=== PATIENT | male | born 1940 | race Two or more races ===

== ENCOUNTER 2018-03-15 10:50 | Emergency (ER) | payer OTHER ==
[~2018-03-15] VITALS: Ht 165.1 cm; Wt 63.5 kg
[~2018-03-15 10:50] MED LIST: AMOX1TAB61 PO; HYDR-971 PO
--- NOTE | 2018-03-15 11:25 | EKG ---
[facility] [address] [place] [address] Test Date: 2018-03-15 Test Time: 11:15:34 Pat Name: ALEX SOTO Department: Room: Gender: M Lead Dental Assistant: YIMI : 1940 Requested By: MACY RODRÍGUEZ Order Number: [id number] Reading MD: Measurements Intervals [place] Rate: 62 P: 49 VT: 152 QRS: 7 QRSD: 74 T: 30 QT: 366 QTc: 373 Interpretive Statements SINUS RHYTHM R-S TRANSITION ZONE IN V LEADS DISPLACED TO THE RIGHT OTHERWISE NORMAL ECG RI6.01 No previous ECG available for comparison
--- NOTE | 2018-03-15 11:32 | PHYS DOC ---
Past Medical History Past Medical History: Asthma, GERD, Hypertension Past Surgical History: Appendectomy Alcohol Use: None Drug Use: None Adult General Chief Complaint Chief Complaint: DIZZY/LIGHT HEADED HPI HPI Pt is a poor historian. They have poor understanding of their past medical history and current medical conditions. They do not provide a clear timeline of events/history. History also limited by Kittitian as a secondary language. Patient speaks Portuguese primarily. Language line offered but patient refused an assist on using family member at bedside as power plant electrician. Patient is a 77 year old male who presents to the ER for evaluation of multiple complaints #1. Patient reports chronic dizziness that has been present daily for the last 2 -3 years. It is unclear to me what outpatient evaluation he has had but it sounds like he's had multiple CTs of his head and hasn't been seen by an ENT doctor is unclear if he has been followed with a neurologist. Patient reports chronic gait instability secondary to his dizziness and reports that he uses a cane to ambulate. Patient reports increased dizziness described as vertigo for the past 2-3 days. Patient reports increased gait instability secondary to worsening dizziness. Patient does not take any medications at home for this. Patient follows with a PCP at and states that he is discussed suspiciousness with his primary care physician. #2. Patient reports history of asthma. Patient reports compliance with home inhalers. Patient reports increased shortness of breath over the last 1 day that feels like previous asthma exacerbations.. Patient has chronic cough which she feels is unchanged. Patient denies any fevers. It is unclear when he last had a course of prednisone. Review of Systems Review of Systems Constitutional: Denies fever or chills [] Eyes: Denies change in visual acuity, redness, or eye pain [] HENT: Nasal congestion present Respiratory: Cough and shortness of breath present Cardiovascular: No chest pain, no lower extremity edema, no orthopnea GI: Denies abdominal pain, nausea, vomiting, bloody stools or diarrhea [] : Denies dysuria or hematuria [] Musculoskeletal: Denies back pain or joint pain [] Integument: Denies rash or skin lesions [] Neurologic: Denies headache, focal weakness or sensory changes []dizziness present Endocrine: Denies polyuria or polydipsia [] All other systems were reviewed and found to be within normal limits, except as documented in this note. Current Medications Current Medications Current Medications Medications (Trade) Dose Ordered Sig/Nany Start Time Stop Time Status Last Admin Dose Admin Albuterol/ Ipratropium (Duoneb) 3 ml 1X ONCE 03/15/18 12:00 03/15/18 12:01 DC 03/15/18 11:54 3 ML Diazepam (Valium) 5 mg 1X ONCE 03/15/18 11:45 03/15/18 11:46 DC 03/15/18 11:34 5 MG Prednisone (Prednisone) 50 mg 1X ONCE 03/15/18 12:00 03/15/18 12:01 DC 03/15/18 12:29 50 MG Allergies Allergies Allergies Coded Allergies Type Severity Reaction Last Updated Verified No Known Drug Allergies 07/11/16 No Physical Exam Physical Exam Constitutional: frail appearing HENT: Normocephalic, atraumatic, Eyes: PERRLA, EOMI, Neck: no stridor. [] Cardiovascular:Heart rate regular rhythm, no murmur [] Lungs & Thorax: Lateral mild expiratory wheezing. Acute respiratory distress. Abdomen: Bowel sounds normal, soft, no tenderness, no masses, no pulsatile masses. [] Skin: Warm, dry, no erythema, no rash. [] Extremities:ROM intact, no edema. [] Neurologic: Alert and oriented X 3, no focal deficits noted. Equal strength in all 4 extremities. Normal sensation all 4 tremors. Cranial nerves II through XII intact bilaterally. Cerebellar function intact bilaterally [id number] and [id number]. Psychologic: Affect normal, judgement normal, mood normal. [] Current Patient Data Vital Signs Vital Signs Date Time Temp Pulse Resp B/P (MAP) Pulse Ox O2 Delivery O2 Flow Rate FiO2 03/15/18 12:45 82 92 03/15/18 11:50 Room Air 03/15/18 10:57 97.2 18 175/84 (114) 97.2 Lab Values Laboratory Tests Test 03/15/18 11:25 03/15/18 12:30 White Blood Count 5.6 x10^3/uL (4.0-11.0) Red Blood Count 4.43 x10^6/uL (4.30-5.70) Hemoglobin 13.9 g/dL (13.0-17.5) Hematocrit 40.5 % (39.0-53.0) Mean Corpuscular Volume 92 fL (79-100) Mean Corpuscular Hemoglobin 31 pg (25-35) Mean Corpuscular Hemoglobin Concent 34 g/dL (31-37) Red Cell Distribution Width 14.0 % (11.5-14.5) Platelet Count 176 x10^3/uL (140-400) Neutrophils (%) (Auto) 68 % (31-73) Lymphocytes (%) (Auto) 18 % (24-48) L Monocytes (%) (Auto) 6 % (0-9) Eosinophils (%) (Auto) 7 % (0-3) H Basophils (%) (Auto) 1 % (0-3) Neutrophils # (Auto) 3.8 x10^3uL (1.8-7.7) Lymphocytes # (Auto) 1.0 x10^3/uL (1.0-4.8) Monocytes # (Auto) 0.3 x10^3/uL (0.0-1.1) Eosinophils # (Auto) 0.4 x10^3/uL (0.0-0.7) Basophils # (Auto) 0.0 x10^3/uL (0.0-0.2) Prothrombin Time 12.6 SEC (11.7-14.0) Prothrombin Time INR 1.0 (0.8-1.1) Sodium Level 138 mmol/L (136-145) Potassium Level 3.6 mmol/L (3.5-5.1) Chloride Level 105 mmol/L (98-107) Carbon Dioxide Level 27 mmol/L (21-32) Anion Gap 6 (6-14) Blood Urea Nitrogen 10 mg/dL (8-26) Creatinine 1.1 mg/dL (0.7-1.3) Estimated GFR (Cockcroft-Gault) 65.3 Glucose Level 114 mg/dL (70-99) H Calcium Level 8.7 mg/dL (8.5-10.1) Troponin I Quantitative < 0.017 ng/mL (0.000-0.055) Urine Collection Type Unknown Urine Color Yellow Urine Clarity Clear Urine pH 6.0 Urine Specific Grandin 1.015 Urine Protein Negative mg/dL (NEG-TRACE) Urine Glucose (UA) Negative mg/dL (NEG) Urine Ketones (Stick) Negative mg/dL (NEG) Urine Blood Negative (NEG) Urine Nitrite Negative (NEG) Urine Bilirubin Negative (NEG) Urine Urobilinogen Dipstick 1.0 mg/dL (0.2 mg/dL) Urine Leukocyte Esterase Negative (NEG) Urine RBC 0 /HPF (0-2) Urine WBC Occ /HPF (0-4) Urine Squamous Epithelial Cells Occ /LPF Urine Bacteria 0 /HPF (0-FEW) Urine Mucus Mod /LPF Laboratory Tests 03/15/18 11:25 Laboratory Tests 03/15/18 11:25 EKG EKG []Normal sinus rhythm, heart rate 62, no significant ST segment changes. Radiology/Procedures Radiology/Procedures CXR IMPRESSION: 1. No radiographic evidence for acute cardiopulmonary process. Electronically signed by: Elvin Moreno MD (03/15/2018 11:38 AM) [facility][] CT Head IMPRESSION: 1. No evidence for acute intracranial process. 2. Changes of chronic small vessel disease. Course & Med Decision Making Course & Med Decision Making Pertinent Labs and Imaging studies reviewed. (See chart for details) []Reassuring ER evaluation. Reportedly is improved after medications in the ER. Required 2 breathing treatments. Given a course of prednisone. Discussed Rx. Advised close follow-up with PCP. Observed gait in the ER and appeared very stable with his cane. ER return precautions given. Patient verbalizes understanding. All questions answered. Dragon Disclaimer Kym Disclaimer This electronic medical record was generated, in whole or in part, using a voice recognition dictation system. Departure Departure Impression: Primary Impression: Dizziness Additional Impression: Asthma exacerbation Disposition: 01 HOME, SELF-CARE Condition: IMPROVED Referrals: NO PCP (PCP) Patient Instructions: Asthma, Adult Additional Instructions: Thank you for coming to [facility]. Please repeat the attached handouts. Please follow-up with your primary care physician. Return to the ER if your symptoms worsen or you have any other concerns. Please take the prednisone as prescribed. Take the meclizine as prescribed for further dizziness. Follow-up with your primary care physician in the next 2-7 days. Scripts Prednisone (PREDNISONE) 50 Mg Tablet 50 MG PO DAILY for 4 Days, #4 TAB Prov: MACY RODRÍGUEZ DO 03/15/18 Meclizine Hcl (MECLIZINE HCL) 25 Mg Tablet 25 MG PO PRN TID for dizziness MDD 2 tablets for 7 Days, #20 dizziness Prov: MACY RODRÍGUEZ DO 03/15/18 Problem Qualifiers MACY RODRÍGUEZ DO Mar 15, 2018 11:32
--- NOTE | 2018-03-15 11:42 | RAD ---
EXAM: PA and lateral views of the chest DATE: 03/15/2018 11:14 AM INDICATION: COUGH COMPARISON: No Prior FINDINGS: The heart is not enlarged. Atherosclerotic calcifications of aorta are seen. Mediastinal and hilar contours are normal. No focal parenchymal airspace opacity. No pleural effusion or pneumothorax. IMPRESSION: 1. No radiographic evidence for acute cardiopulmonary process. Electronically signed by: Elvin Moreno MD (03/15/2018 11:38 AM) [facility]
[2018-03-15 11:45] LABS: BASO % 1 % (0-3); EOS # 0.4 x10^3/uL (0.0-0.7); EOS % 7 % (0-3); HEMATOCRIT 40.5 % (39.0-53.0); HEMOGLOBIN 13.9 g/dL (13.0-17.5); LYMPH % 18 % (24-48); MEAN CORPUSCULAR HEMOGLOBIN 31 pg (25-35); MEAN CORPUSCULAR HGB CONC 34 g/dL (31-37); MEAN CORPUSCULAR VOLUME 92 fL (79-100); MONO # 0.3 x10^3/uL (0.0-1.1); MONO % 6 % (0-9); NEUT # 3.8 x10^3uL (1.8-7.7); NEUT % 68 % (31-73); PLATELET COUNT 176 x10^3/uL (140-400); RED BLOOD COUNT 4.43 x10^6/uL (4.30-5.70); WHITE BLOOD COUNT 5.6 x10^3/uL (4.0-11.0)
[2018-03-15] MEDS ORDERED: IPRATRPIUM/ALBUTEROL 0.5/2.5MG 3 ML NEBU. NEB ONE ×2 (11:45→12:00)
[2018-03-15] MEDS ORDERED: diazePAM 5 MG TABLET PO ONE (11:45)
[2018-03-15 12:00] LABS: CALCIUM 8.7 mg/dL (8.5-10.1); CREATININE 1.1 mg/dL (0.7-1.3); GFR 65.3; POTASSIUM 3.6 mmol/L (3.5-5.1)
[2018-03-15] MEDS ORDERED: predniSONE 10 MG TABLET PO ONE (12:00)
[2018-03-15 12:07] LABS: PROTHROMBIN TIME PATIENT 12.6 SEC (11.7-14.0)
--- NOTE | 2018-03-15 12:19 | RAD ---
CT head without IV contrast CLINICAL HISTORY: DIZZINESS, HEADACHES, NO PRIORS COMPARISON: None. TECHNIQUE: Routine CT of the head without contrast. Soft tissues and bone windows were reviewed. PQRS compliance statement - One or more of the following individualized dose reduction techniques were utilized for this study: 1. Automated exposure control 2. Adjustment of the mA and/or kV according to patient size 3. Use of iterative reconstruction technique FINDINGS: There is no evidence of hemorrhage, mass or extra-axial fluid collection. Gan-white differentiation is maintained with no evidence of edema. There are non-specific foci of hypodensity in the periventricular and subcortical white matter of the cerebral hemispheres. There is no mass effect or shift of the intracranial structures. The ventricles, basilar cisterns and cortical sulci are normal in size and configuration for the patients stated age. The cerebellum and brainstem are unremarkable. The calvarium demonstrates no evidence of fracture or focal lesion. There is normal aeration of the visualized paranasal sinuses and mastoid air cells. The visualized portions of the orbits are normal. IMPRESSION: 1. No evidence for acute intracranial process. 2. Changes of chronic small vessel disease. Electronically signed by: Elvin Moreno MD (03/15/2018 12:16 PM) [facility]
[2018-03-15 12:45] VITALS: BP 151/100
[2018-03-15 12:50] LABS: BILIRUBIN,URINE NEGATIVE (NEG); CLARITY,URINE CLEAR; COLOR,URINE YELLOW; NITRITE,URINE NEGATIVE (NEG); PROTEIN,URINE NEGATIVE (NEG-TRACE)
[2018-03-15 13:17] LABS: BACTERIA,URINE 0 /HPF (0-FEW); RBC,URINE 0 /HPF (0-2); SQUAMOUS EPITHELIAL CELL,UR OCC /LPF; WBC,URINE OCC /HPF (0-4)
[2018-03-15] MEDS ORDERED: PRED50TA PO (13:19)
[2018-03-15] MEDS ORDERED: MECL25TA3 PO (13:19)
== END 2018-03-15 13:29 | disposition home or self-care (01) ==
LOC: EDSEX 10:50 → ER 10:50 → MERGE 10:50 → ER 13:29
DX: J45.901 Unspecified asthma with (acute) exacerbation (principal); R42 Dizziness and giddiness; K21.9 Gastro-esophageal reflux disease without esophagitis; I10 Essential (primary) hypertension; Z90.89 Acquired absence of other organs
CPT/HCPCS: 36415; 70450; 71046; 80048; 81001; 84484; 85025; 85610; 93005; 94640; 99285; J7512; J7620

== ENCOUNTER 2019-07-27 11:13 | Emergency (ER) | payer OTHER ==
[~2019-07-27] VITALS: Ht 165.1 cm; Wt 63.5 kg
[~2019-07-27 11:13] MED LIST changes: +HYDR-3164 PO; -HYDR-971 PO; +MECL25TA3 PO; +PRED50TA PO
[2019-07-27 11:43] VITALS: BP 155/80
[2019-07-27] MEDS ORDERED: CHLO1TB. PO (12:07)
[2019-07-27] MEDS ORDERED: PRED50TA PO (12:07)
[2019-07-27] MEDS ORDERED: AMOX875T PO (12:07)
--- NOTE | 2019-07-27 12:07 | PHYS DOC ---
Past Medical History Past Medical History: Asthma, GERD, Hypertension Past Surgical History: Appendectomy Additional Past Surgical Histo: Unknown Alcohol Use: None Drug Use: None Adult General Chief Complaint Chief Complaint: EARACHE/EAR PAIN HPI HPI Patient is a 78 year old male with history of asthma, hypertension who presents to the ED today complaining of left ear pain rated as mild and intermittent as well as nasal congestion with sinus pressure for 5 days. Patient denies any fever. Patient is Tajik speaking and interpretation is provided by his granddaughter Review of Systems Review of Systems Constitutional: Denies fever or chills [] Eyes: Denies change in visual acuity, redness, or eye pain [] HENT: Reports left ear pain with left sinus pressure, denies sore throat [] Respiratory: Denies cough or shortness of breath [] Cardiovascular: No additional information not addressed in HPI [] GI: Denies abdominal pain, nausea, vomiting, bloody stools or diarrhea [] : Denies dysuria or hematuria [] Musculoskeletal: Denies back pain or joint pain [] Integument: Denies rash or skin lesions [] Neurologic: Denies headache, focal weakness or sensory changes [] All other systems were reviewed and found to be within normal limits, except as documented in this note. Allergies Allergies Allergies Coded Allergies Type Severity Reaction Last Updated Verified No Known Drug Allergies 07/11/16 No Physical Exam Physical Exam Constitutional: Well developed, well nourished, no acute distress, non-toxic appearance. [] HENT: Normocephalic, atraumatic, bilateral external ears normal, oropharynx moist, no oral exudates, left TM is mildly injected, moderate sinus pressure noted on the left maxillary sinus. Eyes: PERRLA, EOMI, conjunctiva normal, no discharge. [] Neck: Normal range of motion, no tenderness, supple, no stridor. [] Cardiovascular:Heart rate regular rhythm, no murmur [] Lungs & Thorax: Bilateral breath sounds clear to auscultation [] Abdomen: Bowel sounds normal, soft, no tenderness, no masses, no pulsatile masses. [] Skin: Warm, dry, no erythema, no rash. [] Back: No tenderness, no CVA tenderness. [] Extremities: No tenderness, no cyanosis, no clubbing, ROM intact, no edema. [] Neurologic: Alert and oriented X 3, normal motor function, normal sensory function, no focal deficits noted. [] Psychologic: Affect normal, judgement normal, mood normal. [] Current Patient Data Vital Signs Vital Signs Date Time Temp Pulse Resp B/P (MAP) Pulse Ox O2 Delivery O2 Flow Rate FiO2 07/27/19 11:43 97.8 84 18 155/80 (105) 97 Room Air 97.8 EKG EKG [] Radiology/Procedures Radiology/Procedures [] Course & Med Decision Making Course & Med Decision Making Pertinent Labs and Imaging studies reviewed. (See chart for details) This is a 78-year-old male patient presenting to the ED today with left ear pain and left sinus pressure. Symptoms for 5 days. He'll be treated for otitis media with amoxicillin. He does not meet criteria for treatment for sinusitis. Follow-up with primary care doctor in 1-2 weeks. Dragon Disclaimer Dragon Disclaimer This electronic medical record was generated, in whole or in part, using a voice recognition dictation system. Departure Departure Impression: Primary Impression: Otitis media, left Additional Impression: Sinus pressure Disposition: 01 HOME, SELF-CARE Condition: STABLE Referrals: DENNIS CROSS MD (PCP) follow up in 1-2 weeks Patient Instructions: Otitis Media, Adult, [id number] Additional Instructions: You were treated in the emergency room for ear infection. Take the prescribed medication as ordered ensure you complete your antibiotics. Follow-up with your doctor in the course of next week. Scripts Chlorphen/Dm/Acetaminophen/Gg (CORICIDIN HBP DAY-NIGHT PACK) 1 Each Tb.cp.seq 1 CAP PO BID, #14 CAP 0 Refills Prov: JUANA CAMARGO APRN 07/27/19 Prednisone (PREDNISONE) 50 Mg Tablet 1 TAB PO DAILY, #5 TAB Prov: JUANA CAMARGO APRN 07/27/19 Amoxicillin (AMOXICILLIN) 875 Mg Tablet 1 TAB PO BID, #20 TAB Prov: JUANA CAMARGO APRN 07/27/19 Problem Qualifiers Primary Impression: Otitis media, left Otitis media type: other nonsuppurative Chronicity: acute Recurrence: non-recurrent Qualified Codes: H65.192 - Other acute nonsuppurative otitis media, left ear JUANA CAMARGO APRN Jul 27, 2019 12:07
== END 2019-07-27 12:17 | disposition home or self-care (01) ==
LOC: ER 11:13
DX: H65.192 Other acute nonsuppurative otitis media, left ear (principal); J34.89 Other specified disorders of nose and nasal sinuses; J45.909 Unspecified asthma, uncomplicated; K21.9 Gastro-esophageal reflux disease without esophagitis; I10 Essential (primary) hypertension
CPT/HCPCS: 99283

== ENCOUNTER 2020-12-22 10:17 | Emergency (ER) | payer OTHER ==
[~2020-12-22] VITALS: Ht 157.5 cm; Wt 60.0 kg
[~2020-12-22 10:17] MED LIST changes: +AMOX875T PO; +CHLO1TB. PO; +MECL-75 PO; -MECL25TA3 PO
[2020-12-22 11:44] VITALS: BP 162/83
[2020-12-22] MEDS ORDERED: GABAPENTIN 300 MG CAPSULE. PO ONE (11:45)
[2020-12-22] MEDS ORDERED: predniSONE 10 MG TABLET PO ONE (11:45)
[2020-12-22] MEDS ORDERED: traMADol 50 MG TABLET PO ONE (11:45)
--- NOTE | 2020-12-22 11:52 | PHYS DOC ---
Past Medical History Past Medical History: Asthma, GERD, Hypertension Past Surgical History: Appendectomy Additional Past Surgical Histo: Unknown Smoking Status: Never Smoker Alcohol Use: None Drug Use: None General Adult EDM: Chief Complaint: SKIN RASH/ABSCESS HPI: HPI: Patient is a 80 year old male with a history of hypertension, acid reflux, asthma, who presents the ED today complaining of a painful rash on the right abdomen and back, for 10 days. Patient denies any fever. Patient is Telugu speaking and interpretation is provided by the son Review of Systems: Review of Systems: Constitutional: Denies fever or chills. [] Musculoskeletal: Denies back pain or joint pain. [] Integument: Reports painful rash to the right upper quadrant and right chest Neurologic: Denies headache, focal weakness or sensory changes. [] Psychiatric: Denies depression or anxiety. [] Heart Score: C/O Chest Pain: N/A Risk Factors: Risk Factors: DM, Current or recent (<one month) smoker, HTN, HLP, family history of CAD, obesity. Risk Scores: Score 0 - 3: 2.5% MACE over next 6 weeks - Discharge Home Score 4 - 6: 20.3% MACE over next 6 weeks - Admit for Clinical Observation Score 7 - 10: 72.7% MACE over next 6 weeks - Early Invasive Strategies Current Medications: Current Medications Medications (Trade) Dose Ordered Sig/Nany Start Time Stop Time Status Last Admin Dose Admin Gabapentin (Neurontin) 300 mg 1X ONCE 12/22/20 11:45 12/22/20 11:46 DC Prednisone (Prednisone) 50 mg 1X ONCE 12/22/20 11:45 12/22/20 11:46 DC Tramadol HCl (Ultram) 50 mg 1X ONCE 12/22/20 11:45 12/22/20 11:46 DC Allergies: Allergies: Allergies Coded Allergies Type Severity Reaction Last Updated Verified No Known Drug Allergies 07/11/16 No Physical Exam: PE: Constitutional: Well developed, well nourished, no acute distress, non-toxic appearance. [] Skin: Warm, dry, right upper quadrant, right flank with grouped red lesions consistent with shingles. No drainage. Back: No tenderness, no CVA tenderness. [] Extremities: No tenderness, no cyanosis, no clubbing, ROM intact, no edema. [] Neurologic: Alert and oriented X 3, normal motor function, normal sensory function, no focal deficits noted. [] Psychologic: Affect normal, judgement normal, mood normal. [] EKG: EKG: [] Radiology/Procedures: Radiology/Procedures: [] Course & Med Decision Making: Course & Med Decision Making Pertinent Labs and Imaging studies reviewed. (See chart for details) This is a 80-year-old male patient with shingles that began 10 days ago. Talk to patient and family about management of the disease considering is 10 days out acyclovir has no benefit. Patient son requested the prescription. Rx was given. Also discharged with tramadol gabapentin and prednisone. Education provided on contagious nature of shingles Dragon Disclaimer: Dragon Disclaimer: This electronic medical record was generated, in whole or in part, using a voice recognition dictation system. Departure Departure Impression: Primary Impression: Shingles Qualified Codes: B02.9 - Zoster without complications Disposition: HOME / SELF CARE / HOMELESS Condition: STABLE Referrals: DENNIS CROSS MD (PCP) follow up with you doctor in 1-2 weeks Patient Instructions: Shingles, [id number] Additional Instructions: Please take the medicines ordered as prescribed. Avoid being around children and people or elderly until the rash is gone. Scripts Acyclovir (ACYCLOVIR) 800 Mg Tablet 1 TAB PO 5XDAY, #50 TAB Prov: JUANA CAMARGO C[employer] MARKER MACHINE 12/22/20 Prednisone (PREDNISONE) 50 Mg Tablet 1 TAB PO DAILY, #7 TAB Prov: JUANA CAMARGO [employer] MARKER MACHINE 12/22/20 Gabapentin (GABAPENTIN ) 300 Mg Capsule 300 MG PO TID for NEUROGENIC PAIN, #60 CAP Prov: JUANA CAMARGO APRN 12/22/20 Tramadol Hcl (TRAMADOL HCL) 50 Mg Tablet 50 MG PO Q6HRS PRN for PAIN, #50 TAB Prov: JUANA CAMARGO [employer] MARKER MACHINE 12/22/20 JUANA CAMARGO APRN December 22, 2020 11:52
[2020-12-22] MEDS ORDERED: PRED50TA PO (12:07)
[2020-12-22] MEDS ORDERED: TRAM50TA PO (12:07)
[2020-12-22] MEDS ORDERED: ACYC800T88 PO (12:07)
[2020-12-22] MEDS ORDERED: GABA300C18 PO (12:07)
== END 2020-12-22 12:15 | disposition home or self-care (01) ==
LOC: ER 10:17
DX: B02.9 Zoster without complications (principal); K21.9 Gastro-esophageal reflux disease without esophagitis; I10 Essential (primary) hypertension; J45.909 Unspecified asthma, uncomplicated
CPT/HCPCS: 99284; J7512

== ENCOUNTER 2021-08-16 12:32 | Emergency (ER) | payer OTHER ==
[~2021-08-16] VITALS: Ht 157.5 cm; Wt 65.9 kg
[~2021-08-16 12:32] MED LIST changes: +ACYC800T88 PO; +GABA300C18 PO; +TRAM50TA PO
--- NOTE | 2021-08-16 13:22 | ED.ADGEN ---
Past Medical History Past Medical History: Asthma, GERD, Hypertension Past Surgical History: Appendectomy Additional Past Surgical Histo: Unknown Smoking Status: Never Smoker Alcohol Use: None Drug Use: None General Adult EDM: Chief Complaint: ABDOMINAL PAIN HPI: HPI: Patient is a 81 year old male coming in for 2 to 3 days of suprapubic pain that radiates to bilateral flanks. Patient has had a difficult time urinating. Denies any blood, Phosphasal discoloration to his urine. Denies any testicular pain. Has not had any fevers. Describes the pain as burning Review of Systems: Review of Systems: All other systems within normal limits except for as noted in the HPI Current Medications: Current Medications Medications (Trade) Dose Ordered Sig/Nany Start Time Stop Time Status Last Admin Dose Admin Ceftriaxone Sodium (Rocephin) 1 gm 1X ONCE 08/16/21 16:15 08/16/21 16:24 DC 08/16/21 16:46 1 GM Ketorolac Tromethamine (Toradol Im) 60 mg 1X ONCE 08/16/21 16:15 08/16/21 16:24 DC 08/16/21 16:44 60 MG Sodium Chloride 1,000 ml @ 1,000 mls/hr 1X ONCE 08/16/21 16:15 08/16/21 17:14 DC 08/16/21 16:42 1,000 MLS/HR Allergies: Allergies: Allergies Coded Allergies Type Severity Reaction Last Updated Verified No Known Drug Allergies 07/11/16 No Physical Exam: PE: Constitutional: Well developed, well nourished, no acute distress, non-toxic appearance. [] HENT: Normocephalic, atraumatic, bilateral external ears normal, nose normal. [] Eyes: PERRLA, conjunctiva normal, no discharge. [] Neck: No rigidity, supple, no stridor. [] Cardiovascular: Regular rate and rhythm, brisk cap refill [] Lungs & Thorax: Non labored symmetric respirations, no tachypnea or respiratory distress [] Abdomen: Soft, nondistended, suprapubic tenderness to palpation. Skin: Warm, dry, no erythema, no rash. [] Back: Unremarkable, no step-off or deformity, bilateral CVA tenderness Extremities: No deformities, range of motion grossly intact, no lower extremity edema [] Neurologic: Alert and oriented X 3, no focal deficits noted. [] Psychologic: Affect normal, judgement normal, mood normal. [] Current Patient Data: Labs: Laboratory Tests Test 08/16/21 13:00 08/16/21 14:17 White Blood Count 6.2 x10^3/uL (4.0-11.0) Red Blood Count 4.63 x10^6/uL (4.30-5.70) Hemoglobin 14.2 g/dL (13.0-17.5) Hematocrit 41.9 % (39.0-53.0) Mean Corpuscular Volume 91 fL (79-100) Mean Corpuscular Hemoglobin 31 pg (25-35) Mean Corpuscular Hemoglobin Concent 34 g/dL (31-37) Red Cell Distribution Width 14.0 % (11.5-14.5) Platelet Count 249 x10^3/uL (140-400) Neutrophils (%) (Auto) 63 % (31-73) Lymphocytes (%) (Auto) 25 % (24-48) Monocytes (%) (Auto) 6 % (0-9) Eosinophils (%) (Auto) 5 % (0-3) H Basophils (%) (Auto) 1 % (0-3) Neutrophils # (Auto) 3.9 x10^3/uL (1.8-7.7) Lymphocytes # (Auto) 1.6 x10^3/uL (1.0-4.8) Monocytes # (Auto) 0.4 x10^3/uL (0.0-1.1) Eosinophils # (Auto) 0.3 x10^3/uL (0.0-0.7) Basophils # (Auto) 0.1 x10^3/uL (0.0-0.2) Sodium Level 137 mmol/L (136-145) Potassium Level 3.6 mmol/L (3.5-5.1) Chloride Level 102 mmol/L (98-107) Carbon Dioxide Level 25 mmol/L (21-32) Anion Gap 10 (6-14) Blood Urea Nitrogen 13 mg/dL (8-26) Creatinine 1.2 mg/dL (0.7-1.3) Estimated GFR (Cockcroft-Gault) 58.4 BUN/Creatinine Ratio 11 (6-20) Glucose Level 168 mg/dL (70-99) H Calcium Level 8.7 mg/dL (8.5-10.1) Total Bilirubin 0.6 mg/dL (0.2-1.0) Aspartate Amino Transferase (AST) 28 U/L (15-37) Alanine Aminotransferase (ALT) 41 U/L (16-63) Alkaline Phosphatase 98 U/L (46-116) Total Protein 7.8 g/dL (6.4-8.2) Albumin 3.5 g/dL (3.4-5.0) Albumin/Globulin Ratio 0.8 (1.0-1.7) L Lipase 100 U/L (73-393) Urine Collection Type Unknown Urine Color Aleida Urine Clarity Clear Urine pH 5.0 (<5.0-8.0) Urine Specific [place] >=1.030 (1.000-1.030) Urine Protein Negative mg/dL (NEG-TRACE) Urine Glucose (UA) Negative mg/dL (NEG) Urine Ketones (Stick) Trace mg/dL (NEG) Urine Blood Negative (NEG) Urine Nitrite Negative (NEG) Urine Bilirubin Small (NEG) Urine Urobilinogen Dipstick 0.2 mg/dL (0.2 mg/dL) Urine Leukocyte Esterase Negative (NEG) Urine RBC Occ /HPF (0-2) Urine WBC 1-4 /HPF (0-4) Urine Squamous Epithelial Cells Few /LPF Urine Amorphous Sediment Present /HPF Urine Bacteria Few /HPF (0-FEW) Urine Hyaline Casts Many /HPF Urine Mucus Marked /LPF Laboratory Tests 08/16/21 13:00 Laboratory Tests 08/16/21 13:00 Vital Signs: Vital Signs Date Time Temp Pulse Resp B/P (MAP) Pulse Ox O2 Delivery O2 Flow Rate FiO2 08/16/21 17:28 71 19 151/80 (103) 96 08/16/21 17:06 Room Air 08/16/21 14:20 98.0 98.0 EKG: EKG: [] Heart Score: C/O Chest Pain: No Risk Factors: Risk Factors: DM, Current or recent (<one month) smoker, HTN, HLP, family history of CAD, obesity. Risk Scores: Score 0 - 3: 2.5% MACE over next 6 weeks - Discharge Home Score 4 - 6: 20.3% MACE over next 6 weeks - Admit for Clinical Observation Score 7 - 10: 72.7% MACE over next 6 weeks - Early Invasive Strategies Radiology/Procedures: Radiology/Procedures: [facility] [address] [place] [address] IMAGING REPORT Signed PATIENT: ALEX VIZCAINO ACCOUNT: [id number] : 1940 LOCATION: ER AGE: 81 SEX: M EXAM STATUS: REG ER ORD. PHYSICIAN: ABBY FLORIAN MD REASON: flank pain PROCEDURE: CT ABDOMEN PELVIS WO CONTRAST Exam: CT abdomen/pelvis without intravenous contrast Indication: Flank pain Comparison: None Technique: Helical CT imaging performed of the abdomen and pelvis without the use of intravenous contrast. Sagittal and coronal reformats were obtained. One or more of the following individualized dose reduction techniques were utilized for this examination: 1. Automated exposure control 2. Adjustment of the mA and/or kV according to patient size 3. Use of iterative reconstruction technique. Findings: Inherently limited evaluation without intravenous contrast. Lower chest: There is motion artifact. Mild dependent opacities in the lower lobes, likely atelectasis. Heart is normal in size. Liver: Normal noncontrast appearance of the liver. Gallbladder/Biliary Tree: Unremarkable. Pancreas: Normal. Spleen: Normal. Adrenal Glands: Normal. Kidneys/Ureters/Bladder: Kidneys are normal in size. There is a 1 cm exophytic cyst in the right kidney. No nephrolithiasis or hydronephrosis. Ureters are normal. The bladder is decompressed with mild wall thickening. Reproductive Organs: Prostate gland is normal in size. Stomach, small bowel, and colon: Small hiatal hernia. There is no small bowel obstruction. Surgical changes of appendectomy. The colon is normal. Vasculature: Abdominal aorta is normal in caliber. Mild calcified aortoiliac atherosclerosis. Lymph Nodes: No lymphadenopathy. Peritoneum and retroperitoneum: No free fluid or free air. Bones: No acute osseous abnormality. There is mild degenerative disc disease at L5-S1. Miscellaneous: Small fat-containing left inguinal hernia. IMPRESSION: 1. No acute abnormality in the abdomen and pelvis. 2. Small hiatal hernia. 3. Small fat-containing left inguinal hernia. Electronically signed by: Abby Bianchi MD (08/16/2021 2:01 PM) [id number] DICTATED and SIGNED BY: ABBY BIANCHI MD DATE: 08/16/21 [id number] [] Course & Med Decision Making: Course & Med Decision Making Pertinent Labs and Imaging studies reviewed. (See chart for details) [] Dragon Disclaimer: Dragon Disclaimer: This electronic medical record was generated, in whole or in part, using a voice recognition dictation system. Departure Departure Impression: Primary Impression: UTI (urinary tract infection) Additional Impression: Flank pain Disposition: HOME / SELF CARE / HOMELESS Condition: STABLE Referrals: DENNIS CROSS MD (PCP) Patient Instructions: Back Pain, Adult Scripts Naproxen (NAPROSYN) 500 Mg Tablet 1 TAB PO BID for pain, #20 TAB Prov: ABBY FLORIAN MD 08/16/21 Ciprofloxacin Hcl (CIPRO) 500 Mg Tablet 1 TAB PO BID for antibiotic for 7 Days, #14 TAB 0 Refills Prov: ABBY FLORIAN MD 08/16/21 Problem Qualifiers ABBY FLORIAN MD Aug 16, 2021 13:22
[2021-08-16 13:24] LABS: BASO # 0.1 x10^3/uL (0.0-0.2); BASO % 1 % (0-3); EOS # 0.3 x10^3/uL (0.0-0.7); EOS % 5 % (0-3); HEMATOCRIT 41.9 % (39.0-53.0); HEMOGLOBIN 14.2 g/dL (13.0-17.5); LYMPH # 1.6 x10^3/uL (1.0-4.8); LYMPH % 25 % (24-48); MEAN CORPUSCULAR HEMOGLOBIN 31 pg (25-35); MEAN CORPUSCULAR HGB CONC 34 g/dL (31-37); MEAN CORPUSCULAR VOLUME 91 fL (79-100); MONO # 0.4 x10^3/uL (0.0-1.1); MONO % 6 % (0-9); NEUT # 3.9 x10^3/uL (1.8-7.7); NEUT % 63 % (31-73); PLATELET COUNT 249 x10^3/uL (140-400); RED BLOOD COUNT 4.63 x10^6/uL (4.30-5.70); WHITE BLOOD COUNT 6.2 x10^3/uL (4.0-11.0)
[2021-08-16 13:33] LABS: CALCIUM 8.7 mg/dL (8.5-10.1); CREATININE 1.2 mg/dL (0.7-1.3); GFR 58.4; POTASSIUM 3.6 mmol/L (3.5-5.1)
[2021-08-16 13:38] LABS: ALBUMIN 3.5 g/dL (3.4-5.0); ALBUMIN/GLOBULIN RATIO 0.8 (1.0-1.7); TOTAL BILIRUBIN 0.6 mg/dL (0.2-1.0); TOTAL PROTEIN 7.8 g/dL (6.4-8.2)
--- NOTE | 2021-08-16 14:04 | RAD ---
Exam: CT abdomen/pelvis without intravenous contrast Indication: Flank pain Comparison: None Technique: Helical CT imaging performed of the abdomen and pelvis without the use of intravenous cont rast. Sagittal and coronal reformats were obtained. One or more of the following individualized dose reduction techniques were utilized for this examinat ion: 1. Automated exposure control 2. Adjustment of the mA and/or kV according to patient size 3. Use of iterative reconstruction technique. Findings: Inherently limited evaluation without intravenous contrast. Lower chest: There is motion artifact. Mild dependent opacities in the lower lobes, likely atelectasi s. Heart is normal in size. Liver: Normal noncontrast appearance of the liver. Gallbladder/Biliary Tree: Unremarkable. Pancreas: Normal. Spleen: Normal. Adrenal Glands: Normal. Kidneys/Ureters/Bladder: Kidneys are normal in size. There is a 1 cm exophytic cyst in the right kidn ey. No nephrolithiasis or hydronephrosis. Ureters are normal. The bladder is decompressed with mild w all thickening. Reproductive Organs: Prostate gland is normal in size. Stomach, small bowel, and colon: Small hiatal hernia. There is no small bowel obstruction. Surgical c hanges of appendectomy. The colon is normal. Vasculature: Abdominal aorta is normal in caliber. Mild calcified aortoiliac atherosclerosis. Lymph Nodes: No lymphadenopathy. Peritoneum and retroperitoneum: No free fluid or free air. Bones: No acute osseous abnormality. There is mild degenerative disc disease at L5-S1. Miscellaneous: Small fat-containing left inguinal hernia. IMPRESSION: 1. No acute abnormality in the abdomen and pelvis. 2. Small hiatal hernia. 3. Small fat-containing left inguinal hernia. Electronically signed by: Abby Bianchi MD (08/16/2021 2:01 PM) [id number]
[2021-08-16 14:36] LABS: BILIRUBIN,URINE SMALL (NEG); CLARITY,URINE CLEAR; COLOR,URINE AMBER; NITRITE,URINE NEGATIVE (NEG); PROTEIN,URINE NEGATIVE (NEG-TRACE); UROBILINOGEN,URINE 0.2 mg/dL (0.2 mg/dL)
[2021-08-16 14:44] LABS: HYALINE CASTS, URINE MANY /HPF
[2021-08-16 14:45] LABS: AMORPHOUS SEDIMENT,UR PRESENT /HPF; BACTERIA,URINE FEW /HPF (0-FEW); RBC,URINE OCC /HPF (0-2)
[2021-08-16] MEDS ORDERED: KETOROLAC 60 MG/2 ML VIAL. IM ONE (16:15)
[2021-08-16] MEDS ORDERED: cefTRIAXone IV Push 1 GM VIAL. IVP ONE (16:15)
[2021-08-16] MEDS ORDERED: IV NORMAL SALINE 1000ML BAG 1,000 ML IV ONE (16:15)
[2021-08-16] MEDS ORDERED: CIPR500T94 PO (16:42)
[2021-08-16] MEDS ORDERED: NAPR-683 PO (16:42)
[2021-08-16 17:28] VITALS: BP 151/80
== END 2021-08-16 17:36 | disposition home or self-care (01) ==
LOC: ER 12:32
DX: N39.0 Urinary tract infection, site not specified (principal); J45.909 Unspecified asthma, uncomplicated; K21.9 Gastro-esophageal reflux disease without esophagitis; I10 Essential (primary) hypertension; K44.9 Diaphragmatic hernia without obstruction or gangrene
CPT/HCPCS: 36415; 74176; 80053; 81001; 83690; 85025; 96361; 96372; 96374; 99285; J0696; J1885; J7030